=== PATIENT | female | born 2000 | race Caucasian/White ===

== ENCOUNTER 2019-10-19 10:48 | Emergency (ER) | payer MEDICAID ==
--- NOTE | 2019-10-19 12:20 | ED Physician Documentation ---
History of Present Illness - Stated complaint Stated Complaint: SORE THROAT - Chief complaint Chief Complaint: General - History obtained from History obtained from: Patient - History of Present Illness Timing: Today (Sick for about 40 hours with sore throat, body aches, fevers and chills. Her little sister was sick last week with influenza.) Review of Systems Constitutional: reports: Fever, Chills, Myalgias, Fatigue Ears: denies: Ear pain Nose: reports: Rhinorrhea / runny nose Throat: reports: Sore throat Respiratory: denies: Cough GI: denies: Vomiting, Diarrhea PD PAST MEDICAL HISTORY - Past Medical History Past Medical History: No - Past Surgical History Past Surgical History: No - Allergies Allergies/Adverse Reactions: Allergies Allergy/AdvReac Type Severity Reaction Status Date / Time No Known Drug Allergies Allergy Verified 10/19/19 10:52 - Social History Does the pt smoke?: No Smoking Status: Never smoker Does the pt have substance abuse?: No - Immunizations Immunizations are current?: Yes - POLST Patient has POLST: No PD ED PE NORMAL - Vitals Vital signs reviewed: Yes - General General: Alert and oriented X 3, No acute distress - HEENT HEENT: PERRL, EOMI, Other (Mild redness of the tonsillar pillars without exudates or much swelling. No ant adenopathy.) - Neck Neck: Supple, no meningeal sign - Cardiac Cardiac: RRR, No murmur - Respiratory Respiratory: No respiratory distress, Clear bilaterally - Abdomen Abdomen: Non tender - Derm Derm: No rash - Neuro Neuro: Alert and oriented X 3, Normal speech Results - Vitals Vitals: Vital Signs - 24 hr 10/19/19 10:52 Temperature 36.9 C Heart Rate 95 Respiratory 14 Rate Blood Pressure 116/79 O2 Saturation 100 Oxygen O2 Source Room air - Labs Labs: Laboratory Tests 10/19/19 10/19/19 10:56 12:05 Influenza A (Rapid) Negative Influenza B (Rapid) Negative Group A Strep Rapid Negative Departure - Departure Disposition: 01 Home, Self Care Clinical Impression: Viral syndrome Condition: Good Record reviewed to determine appropriate education?: Yes Instructions: ED Viral Syndrome Comments: Ibuprofen as needed for the aches and pains. Drink plenty of fluids. Return if worse or if not better in about 3 days.
[2019-10-19 12:36] VITALS: BP 120/81
== END 2019-10-19 12:41 | disposition home or self-care (01) ==
LOC: ED 10:48
DX: B34.9 Viral infection, unspecified (principal)
CPT/HCPCS: 87070; 87275; 87276; 87430; 99282; 99283

== ENCOUNTER 2020-05-12 07:00 | Outpatient (CLI) | payer MEDICAID ==
[2020-05-13 21:02] LABS: TRICHOMONAS VAGINALIS DNA NEGATIVE (NEGATIVE)
== END 2020-05-12 23:59 | disposition home or self-care (01) ==
LOC: LAB.R 07:00
PROVIDERS: ATTEND Advanced Practice Midwife
DX: L70.9 Acne, unspecified (principal); Z30.09 Encounter for other general counseling and advice on contraception
CPT/HCPCS: 87491; 87591; 87661